=== PATIENT | female | born 1990 | race American Indian/Alaskan Native ===

== ENCOUNTER 2018-06-19 00:42 | Emergency (ER) | payer MEDICAID ==
[2018-06-19 01:19] VITALS: BP 116/72
== END 2018-06-19 05:00 | disposition left against medical advice (07) ==
LOC: ED 00:42
DX: R50.9 Fever, unspecified (principal); R51 Headache; Z53.21 Procedure and treatment not carried out due to patient leaving prior to being seen by health care provider

== ENCOUNTER 2018-06-20 14:10 | Emergency (ER) | payer MEDICAID ==
[2018-06-20 14:25] VITALS: BP 135/82
[2018-06-20] MEDS ORDERED: TORADOL IV ONE (15:28)
[2018-06-20] MEDS ORDERED: CLEOCIN 600 MG/50 mL 600 MG/50 ML BAG IV ONE (15:28)
[2018-06-20] MEDS ORDERED: SOLU-Medrol IV ONE (15:28)
[2018-06-20] MEDS ORDERED: NACL 0.9% 1000 ML 1,000 ML IV ONE (15:28)
--- NOTE | 2018-06-20 16:16 | Emergency Department Report ---
ED ENT HPI - General Chief complaint: Allergic Reaction Stated complaint: SOB/CANT SWOLLOW Time Seen by Provider: 06/20/18 15:24 Source: patient Mode of arrival: Ambulatory Limitations: No Limitations - History of Present Illness Initial comments: Patient is a 28-year-old Banglades[place] female who has been taking amoxicillin for the past 4 days because of some tooth pain. Patient states she is itching after starting the amoxicillin. Patient states Benadryl is helping. Patient states to pain is no longer present however she does have sore throat. Patient is able to drink water but has not eaten in several days. Patient has mild lightheadedness. Patient states pain is 8 out of 10 in severity when she swallows. Patient denies any fevers chills cough nausea vomiting at this time. She does state she has some generalized body aches. - Related Data Home Medications Medication Instructions Recorded Confirmed Last Taken Pnv No.95/Ferrous Fum/Folic AC 1 each PO DAILY 10/18/16 10/18/16 10/17/16 [Prenavite Tablet] 1 Previous Rx's Medication Instructions Recorded Last Taken Type Clindamycin [Clindamycin CAP] 300 mg PO Q8H 7 Days cap 06/20/18 Unknown Rx HYDROcodone/ACETAMINOPHEN 15 ml PO Q4H PRN #150 ml 06/20/18 Unknown Rx [Hydrocodon-Acetamin 7.5-325/15] Allergies Allergy/AdvReac Type Severity Reaction Status Date / Time No Known Allergies Allergy Verified 10/18/16 09:26 ED Dental HPI - General Chief complaint: Allergic Reaction Stated complaint: SOB/CANT SWOLLOW Time Seen by Provider: 06/20/18 15:24 Source: patient Mode of arrival: Ambulatory Limitations: No Limitations - Related Data Home Medications Medication Instructions Recorded Confirmed Last Taken Pnv No.95/Ferrous Fum/Folic AC 1 each PO DAILY 10/18/16 10/18/16 10/17/16 [Prenavite Tablet] 1 Previous Rx's Medication Instructions Recorded Last Taken Type Clindamycin [Clindamycin CAP] 300 mg PO Q8H 7 Days cap 06/20/18 Unknown Rx HYDROcodone/ACETAMINOPHEN 15 ml PO Q4H PRN #150 ml 06/20/18 Unknown Rx [Hydrocodon-Acetamin 7.5-325/15] Allergies Allergy/AdvReac Type Severity Reaction Status Date / Time No Known Allergies Allergy Verified 10/18/16 09:26 ED Review of Systems ROS: Stated complaint: SOB/CANT SWOLLOW Other details as noted in HPI Comment: All other systems reviewed and negative ED Past Medical Hx - Past Medical History Previous Medical History?: No Hx Hypertension: No Hx Congestive Heart Failure: No Hx Diabetes: No Hx Deep Vein Thrombosis: No Hx Renal Disease: No Hx Sickle Cell Disease: No Hx Seizures: No Hx Asthma: No Hx COPD: No Hx HIV: No - Surgical History Past Surgical History?: No - Social History Smoking Status: Current Every Day Smoker Substance Use Type: None - Medications Home Medications: Home Medications Medication Instructions Recorded Confirmed Last Taken Type Pnv No.95/Ferrous Fum/Folic AC 1 each PO DAILY 10/18/16 10/18/16 10/17/16 History [Prenavite Tablet] 1 Clindamycin [Clindamycin CAP] 300 mg PO Q8H 7 Days cap 06/20/18 Unknown Rx HYDROcodone/ACETAMINOPHEN 15 ml PO Q4H PRN #150 ml 06/20/18 Unknown Rx [Hydrocodon-Acetamin 7.5-325/15] ED Physical Exam - General Limitations: No Limitations General appearance: alert, in no apparent distress - Head Head exam: Present: atraumatic, normocephalic - Eye Eye exam: Present: normal appearance - ENT ENT exam: Present: mucous membranes moist, other (patient has some mild pharyngeal erythema with bilateral tonsillar swelling. Uvula is midline.) - Neck Neck exam: Present: normal inspection - Respiratory Respiratory exam: Present: normal lung sounds bilaterally. Absent: respiratory distress, wheezes, rales - Cardiovascular Cardiovascular Exam: Present: regular rate, normal rhythm. Absent: systolic murmur, diastolic murmur, rubs, gallop - GI/Abdominal GI/Abdominal exam: Present: soft, normal bowel sounds - Extremities Exam Extremities exam: Present: normal inspection - Back Exam Back exam: Present: normal inspection - Neurological Exam Neurological exam: Present: alert, oriented X3 - Psychiatric Psychiatric exam: Present: normal affect, normal mood - Skin Skin exam: Present: warm, dry, intact, normal color. Absent: rash ED Course Vital Signs 06/20/18 14:17 Temperature 98.8 F Pulse Rate 112 H Respiratory 20 Rate Blood Pressure 135/82 O2 Sat by Pulse 99 Oximetry ED Medical Decision Making - Medical Decision Making Patient was given IV fluids and meds for symptomatic relief. Patient notes antibiotics will be switched to clindamycin. Patient will be discharged home after IV fluids. Critical care attestation.: If time is entered above; I have spent that time in minutes in the direct care of this critically ill patient, excluding procedure time. ED Disposition Clinical Impression: Drug allergy Pharyngitis Qualifiers: Pharyngitis/tonsillitis etiology: unspecified etiology Qualified Code(s): J02.9 - Acute pharyngitis, unspecified Disposition: DC- TO HOME OR SELFCARE Is pt being admited?: No Does the pt Need Aspirin: No Condition: Stable Instructions: Pharyngitis (ED) Time of Disposition: 16:19
== END 2018-06-20 17:40 | disposition home or self-care (01) ==
LOC: ED 14:10
DX: T50.905A Adverse effect of unspecified drugs, medicaments and biological substances, initial encounter (principal); J02.9 Acute pharyngitis, unspecified; Y92.89 Other specified places as the place of occurrence of the external cause
CPT/HCPCS: 96365; 96375; 99282; J1885; J2930; J7030

== ENCOUNTER 2018-07-07 08:19 | Emergency (ER) | payer MEDICAID ==
[2018-07-07 08:26] VITALS: BP 126/83
--- NOTE | 2018-07-07 10:06 | Emergency Department Report ---
HPI - General Chief Complaint: Allergic Reaction ED Past Medical Hx - Past Medical History Hx Hypertension: No Hx Congestive Heart Failure: No Hx Diabetes: No Hx Deep Vein Thrombosis: No Hx Renal Disease: No Hx Sickle Cell Disease: No Hx Seizures: No Hx Asthma: No Hx COPD: No Hx HIV: No - Social History Smoking Status: Current Every Day Smoker Substance Use Type: None - Medications Home Medications: Home Medications Medication Instructions Recorded Confirmed Last Taken Type Pnv No.95/Ferrous Fum/Folic AC 1 each PO DAILY 10/18/16 10/18/16 10/17/16 History [Prenavite Tablet] 1 Clindamycin [Clindamycin CAP] 300 mg PO Q8H 7 Days cap 06/20/18 Unknown Rx HYDROcodone/ACETAMINOPHEN 15 ml PO Q4H PRN #150 ml 06/20/18 Unknown Rx [Hydrocodon-Acetamin 7.5-325/15] ED Review of Systems ROS: Stated complaint: HIVES Other details as noted in HPI Physical Exam - Physical Exam Vital Signs: Vital Signs 07/07/18 08:23 Temperature 98.7 F Pulse Rate 72 Respiratory 18 Rate Blood Pressure 126/83 O2 Sat by Pulse 99 Oximetry ED Course Vital Signs 07/07/18 08:23 Temperature 98.7 F Pulse Rate 72 Respiratory 18 Rate Blood Pressure 126/83 O2 Sat by Pulse 99 Oximetry Critical care attestation.: If time is entered above; I have spent that time in minutes in the direct care of this critically ill patient, excluding procedure time. ED Disposition Condition: Stable Referrals: PRIMARY CARE, [Primary Care Provider] - 3-5 Days
--- NOTE | 2018-07-07 10:10 | Emergency Department Report ---
ED Rash HPI - HPI Chief Complaint: Allergic Reaction Stated Complaint: HIVES Duration: 4 week Location: Chest, Upper Extremities, Lower Extremities Suspected Cause: Unknown Rash Symptoms: Yes Itching, No Facial Swelling, No Tongue/Oral Swelling, No Breathing Difficulties, No Choking Sensation, No Wheezing/Dyspnea, No Peeling, No Blistering, No Fever, No Lightheaded, No Malaise, No Myalgias Other History: This is a 28-year-old -[place] female Presents with a intermittent rash for 4 weeks. Patient states rash is pruritic and occurs every other day. Currently rash is resolved. Patient states she is taking Benadryl which improves itching and rash but it continues to return. Patient states it always starts in the evening between 4 and 5 PM. Patient denies recent change in soaps or laundry detergents. She denies recent contacts or anyone else sent home with similar symptoms. Patient denies difficulty swallowing, tongue swelling, and fever. ED Review of Systems ROS: Stated complaint: HIVES Other details as noted in HPI Constitutional: denies: chills, fever Respiratory: denies: cough, shortness of breath, wheezing Cardiovascular: denies: chest pain, palpitations Gastrointestinal: denies: abdominal pain, nausea, diarrhea Skin: rash. denies: lesions Neurological: denies: headache, weakness, paresthesias Psychiatric: denies: anxiety, depression ED Past Medical Hx - Past Medical History Hx Hypertension: No Hx Congestive Heart Failure: No Hx Diabetes: No Hx Deep Vein Thrombosis: No Hx Renal Disease: No Hx Sickle Cell Disease: No Hx Seizures: No Hx Asthma: No Hx COPD: No Hx HIV: No - Social History Smoking Status: Current Every Day Smoker Substance Use Type: None - Medications Home Medications: Home Medications Medication Instructions Recorded Confirmed Last Taken Type Pnv No.95/Ferrous Fum/Folic AC 1 each PO DAILY 10/18/16 10/18/16 10/17/16 History [Prenavite Tablet] 1 Clindamycin [Clindamycin CAP] 300 mg PO Q8H 7 Days cap 06/20/18 Unknown Rx HYDROcodone/ACETAMINOPHEN 15 ml PO Q4H PRN #150 ml 06/20/18 Unknown Rx [Hydrocodon-Acetamin 7.5-325/15] Cetirizine HCl [Zyrtec] 10 mg PO DAILY #30 tablet 07/07/18 Unknown Rx Rash Exam - Exam General: Vital signs noted. No distress. Alert and acting appropriately. HEENT: No Periorbital Edema, No Conjuctival Injection, No Chemosis, No Perioral Edema, No Tongue Edema, No Uvular Edema, No Compromised Airway, No Drooling Lungs: Yes Good Air Exchange (Normal Breath Sounds), No Wheezes, No Ronchi, No Stridor, No Cough, No Labored Respirations, No Retractions, No Use of Accessory Muscles, No Other Abnormal Lung Sounds Heart: Yes Regular, No Murmur Skin: No Urticarial Rash, No Maculopapular Rash, No Morbilliform rash, No Bulla( e), No Excoriations, No Weeping, No Tenderness, No Erythema, No Edema, No Encrustations, No Other Other: Positive: Abdomen Normal, Neurologic Normal, Musculoskeletal Normal ED Course Vital Signs 07/07/18 08:23 Temperature 98.7 F Pulse Rate 72 Respiratory 18 Rate Blood Pressure 126/83 O2 Sat by Pulse 99 Oximetry ED Medical Decision Making - Medical Decision Making Patient was examined by me in fast track. Vitals are normal and patient is in no acute distress. Rash resolved on physical exam. Start Zyrtec for pruritus and contact dermatitis. Referral to dermatology and allergies for continuance of care. Plan discussed with patient to discharge home and treat outpatient. He agrees with ER plan. Patient discharged home in stable condition. Follow up with PCP in 2-3 days. Critical care attestation.: If time is entered above; I have spent that time in minutes in the direct care of this critically ill patient, excluding procedure time. ED Disposition Clinical Impression: Pruritic rash Contact dermatitis Qualifiers: Contact dermatitis type: allergic Contact dermatitis trigger: unspecified trigger Qualified Code(s): L23.9 - Allergic contact dermatitis, unspecified cause Disposition: - TO HOME OR SELFCARE Is pt being admited?: No Does the pt Need Aspirin: No Condition: Stable Instructions: Contact Dermatitis (ED) Additional Instructions: Follow-up with dermatology and asbestos remover for skin testing. Prescriptions: Cetirizine HCl [Zyrtec] 10 mg PO DAILY #30 tablet Referrals: [facility] [Provider Group] - 3-5 Days [facility] [Provider Group] - 3-5 Days [facility] [Provider Group] - 3-5 Days Time of Disposition: 10:15 Print Language: MALAY
== END 2018-07-07 10:25 | disposition home or self-care (01) ==
LOC: ED 08:19
DX: L23.9 Allergic contact dermatitis, unspecified cause (principal); F17.200 Nicotine dependence, unspecified, uncomplicated
CPT/HCPCS: 99281